=== PATIENT | male | born 1985 | race Caucasian/White ===

== ENCOUNTER 2017-01-07 12:51 | Emergency (ER) | payer BC ==
[~2017-01-07] VITALS: Ht 180.3 cm; Wt 81.6 kg
[~2017-01-07 12:51] MED LIST: PANT40TA2 PO; SUCR1TAB36 PO; SUMA25TA4 PO
--- NOTE | 2017-01-07 13:14 | ED Headache ---
General Chief Complaint: Head/Cervical Problems Stated Complaint: MIGRANE Source: patient Exam Limitations: no limitations History of Present Illness Time seen by provider: 13:11 Initial Comments This 31-year-old white male presents with a right frontal headache that began at 930 this morning (4 hours prior to presentation to the emergency department. The patient has had a long-standing history of similar migraines. The patient tried sumatriptan without relief prior to presentation. In addition to the headache and the right visual aura that preceded the headache the patient is also experiencing significant nausea. Patient denies associated fever or chills, stiff neck, cough shortness of breath or chest pain, vomiting, diarrhea, dysuria, or lateralizing or localizing neurologic complaints. The patient's past medical history is otherwise noncontributory. Allergies and Home Medications Allergies Coded Allergies: amoxicillin (Verified Allergy, Unknown, 09/11/15) Home Medications Sumatriptan Succinate 25 Mg Tablet, 25 MG PO ONCE, #5 May repeat dose x1 after 2H Prescribed by: HOMER MEMBRENO on 02/17/16 0802 Constitutional: No chills, No fever Eyes: Denies Blurred Vision, Photophobia, Other (visual aura) Ears, Nose, Mouth, Throat: denies ear pain Respiratory: No cough Cardiovascular: No chest pain Gastrointestinal: No abdominal pain, No diarrhea, nausea, No vomiting Genitourinary: No dysuria, No hematuria Musculoskeletal: No back pain Skin: No change in color, No rash Psychiatric/Neurological: Headache, Denies Numbness, Denies Paresthesia Past [id number]-[id number] Hx Patient Social History Alcohol Use: Denies Use Recreational Drug Use: No Smoking Status: Never a Smoker Recent Foreign Travel: No Contact w/Someone Who Travel: No Surgeries HX Surgeries: No Respiratory Hx Respiratory Disorders: No Cardiovascular Hx Cardiac Disorders: No Neurological Hx Neurological Disorders: Yes Neurological Disorders: Headaches /Migraines Gastrointestinal Hx Gastrointestinal Disorders: Yes Musculoskeletal Hx Musculoskeletal Disorders: No Endocrine Hx Endocrine Disorders: No Reviewed Nursing Assessment Reviewed/Agree w Nursing PMH: Yes Physical Exam Vital Signs Vital Sign - Last 12Hours 01/07/17 13:00 Temp 97.3 Pulse 78 Resp 18 B/P (MAP) 136/81 Pulse Ox 98 Capillary Refill : General Appearance: WD/WN, mild distress HEENT: normal ENT inspection Neck: non-tender, full range of motion, supple, normal inspection Cardiovascular: regular rate, rhythm, no murmur Respiratory: lungs clear, normal breath sounds Gastrointestinal: normal bowel sounds, non tender, soft Extremities: normal range of motion, non-tender Psychiatric: alert, oriented x 3 Crainal Nerves: normal hearing, normal speech Motor/Sensory: no motor deficit, no sensory deficit Skin: normal color, warm/dry Progress/Results/Core Measures Results/Orders My Orders Orders - SAJI BRODERICK MD Prochlorperazine Injection (Compazine In (01/07/17 13:15) Ketorolac Injection (Toradol Injection) (01/07/17 13:15) Diphenhydramine Injection (Benadryl Inje (01/07/17 13:15) Saline Lock/Iv-Start (01/07/17 13:36) Ns Iv 1000 Ml (Sodium Chloride 0.9%) (01/07/17 14:00) Medications Given in ED Current Medications Medications Dose Ordered Sig/Srikanth Route Start Time Stop Time Status Last Admin Dose Admin Diphenhydramine HCl 25 mg ONCE ONCE IVP 01/07/17 13:15 01/07/17 13:16 DC 01/07/17 13:19 25 MG Ketorolac Tromethamine 30 mg ONCE ONCE IVP 01/07/17 13:15 01/07/17 13:16 DC 01/07/17 13:22 30 MG Prochlorperazine Edisylate 10 mg ONCE ONCE IV 01/07/17 13:15 01/07/17 13:16 DC 01/07/17 13:20 10 MG Vital Signs/I&O Vital Sign - Last 12Hours 01/07/17 13:00 Temp 97.3 Pulse 78 Resp 18 B/P (MAP) 136/81 Pulse Ox 98 Progress Note : Time: 13:50 Progress Note The agents headache significantly improved on a combination of IV ketorolac, Compazine, and Benadryl. Patient received 1 L bolus of normal saline as well. Departure Impression Impression: Primary Impression: Migraine Qualified Codes: G43.109 - Migraine with aura, not intractable, without status migrainosus Disposition: 01 HOME, SELF-CARE Condition: Improved Departure-Patient Inst. Decision time for Depature: 14:00 Referrals: NO,LOCAL PHYSICIAN (PCP) Primary Care Physician Patient Instructions: Migraine Headache (DC) Add. Discharge Instructions: Rest at home today. Toradol and Zofran should headache recur. Return if any problems or questions. All discharge instructions reviewed with patient and/or family. Voiced understanding. SAJI BRODERICK MD January 07, 2017 13:14
[2017-01-07] MEDS ORDERED: PROCHLORPERAZINE 10 MG/2ML INJ (COMPAZINE) IV ONE (13:15)
[2017-01-07] MEDS ORDERED: diphenhydrAMINE 50 MG/ML INJ (BENADRYL) IM ONE (13:15)
[2017-01-07] MEDS ORDERED: diphenhydrAMINE 50 MG/ML INJ (BENADRYL) IVP ONE (13:15)
[2017-01-07] MEDS ORDERED: KETOROLAC 30 MG/ML VIAL IVP ONE (13:15)
[2017-01-07] MEDS ORDERED: NS IV 1000 ML 1,000 ML IV SCH (14:00)
[2017-01-07 15:07] VITALS: BP 126/67
== END 2017-01-07 15:09 | disposition home or self-care (01) ==
LOC: EDUNIT# 12:51 → ER 12:52
DX: G43.109 Migraine with aura, not intractable, without status migrainosus (principal)
CPT/HCPCS: 96361; 96374; 96375